=== PATIENT | female | born 1985 | race Caucasian/White ===

== ENCOUNTER → 2018-05-19 07:34 | Outpatient (CLI) | payer OTHER, SELFPAY ==
[2018-05-19 09:08] LABS: Cholesterol 212 mg/dL (140-199); HDL Cholesterol 40 mg/dL (40-60); LDL Cholesterol Calculated 147 mg/dL (<100); Triglycerides 125 mg/dL (35-150)
== END ==
PROVIDERS: PCP Family Medicine; Visit Provider Specialist
DX: Z13.220 Encounter for screening for lipoid disorders (principal)
CPT/HCPCS: 36415; 80061

== ENCOUNTER → 2025-02-19 08:44 | Outpatient (CLI) | payer OTHER, SELFPAY ==
--- NOTE | 2025-02-19 08:46 | DI.RAD.S_ITS ---
PROCEDURE: XR FOOT RT MIN 3V INDICATIONS: right foot pain TECHNIQUE: 3 views of the foot were acquired. COMPARISON: None. FINDINGS: Bones: No fractures or dislocations. No suspicious bony lesions. Soft tissues: No tibiotalar joint effusion. Achilles tendon appears normal. IMPRESSION: No acute bony abnormality. Dictated by: Ata Huynh M.D. on 02/19/2025 at 12:10 Approved by: Ata Huynh M.D. on 02/19/2025 at 12:21
== END ==
PROVIDERS: PCP Family Medicine; Referring Provider Family Medicine; Visit Provider Family Medicine
DX: M79.671 Pain in right foot (principal)
CPT/HCPCS: 73630